=== PATIENT | male | born 1965 | race Two or more races ===

== ENCOUNTER 2024-12-14 05:50 | Day surgery (SDC) | payer BC, SELFPAY ==
--- NOTE | 2024-12-13 06:23 | EKG_ITS ---
[facility] Test Date: 2024-12-13 Pat Name: KIMBERLY JI Department: Room: - Gender: Male Security Operations Engineer: LULI : 1965 Requested By: Nikita Newsome Order Number: [id number] Reading MD: Nikita Newsome Measurements Intervals [place] Rate: 57 P: 13 UT: 127 QRS: -23 QRSD: 92 T: 54 QT: 379 QTc: 371 Interpretive Statements SINUS BRADYCARDIA BORDERLINE LEFT AXIS DEVIATION [QRS AXIS < -20] No previous ECG available for comparison /[id number]/[email or web address]/[id number].pdf
[2024-12-13 10:37] VITALS: BMI 23.9
[2024-12-13 11:06] LABS: Collection Type, Urine Clean Catch; Squamous Epithelial Cell,Urine 0 /hpf (0-5)
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
[2024-12-13 12:08] LABS: Basophils # (Auto) 0.1 Thou/mm3 (0.0-0.2); Basophils % (Auto) 1 % (0-2.5); Eosinophils # (Auto) 0.1 Thou/mm3 (0.0-0.5); Eosinophils % (Auto) 1 % (0-10); Hematocrit 42.9 % (41.0-53.0); Hemoglobin 14.9 g/dL (13.5-16.0); Immature Granulocytes Auto 0.04 Thou/mm3 (0.00-0.00); Lymphocytes # (Auto) 2.0 Thou/mm3 (1.0-4.8); Lymphocytes % (Auto) 30 % (10-50); Mean Corpuscular HGB Conc 34.7 g/dl (31.0-37.0); Mean Corpuscular Hemoglobin 33.9 pg (25.0-35.0); Mean Corpuscular Volume 98 fL (80-100); Monocytes # (Auto) 0.5 Thou/mm3 (0.0-0.8); Monocytes % (Auto) 7 % (0-12); Neutrophils # (Auto) 4.0 Thou/mm3 (1.8-7.7); Neutrophils % (Auto) 60 % (37-80); Nucleated Red Blood Cell # 0.00 Thou/mm3 (0.00-0.00); Nucleated Red Blood Cell % 0 /100 WBC (0); Platelet Count 443 Thou/mm3 (140-440); RDW Standard Deviation 42.1 fL (35.1-43.9); Red Blood Count 4.40 Miln/mm3 (4.50-5.90); White Blood Count 6.6 Thou/mm3 (3.8-10.6)
[2024-12-13 12:20] LABS: Alanine Aminotransferase 38 U/L (10-49); Albumin, Serum 4.6 gm/dL (3.4-4.8); Albumin/Globulin Ratio 1.6 (1.2-2.2); Alkaline Phosphatase 68 U/L (46-116); Anion Gap 10 (7-16); Aspartate Amino Transferase 29 U/L (0-34); BUN/Creatinine Ratio 14 Ratio (12-20); Bilirubin,Total 0.6 mg/dL (0.3-1.2); Blood Urea Nitrogen 11 mg/dL (9-23); Calcium 10.0 mg/dL (8.3-10.6); Calcium (Corrected) 10.0 mg/dL (8.5-10.1); Carbon Dioxide 24.2 mMol/L (20.0-31.0); Chloride 100 mMol/L (98-107); Creatinine (Component) 0.8 mg/dL (0.6-1.3); Estimated Creatinine Clearance 93.8 mL/min (>60); Globulin 2.8 gm/dL (2.3-3.5); Glucose 143 mg/dL (74-106); Osmolality,Calculated 269 (275-295); Potassium 4.8 mMol/L (3.4-5.1); Sodium 134 mMol/L (136-145); Total Protein 7.4 gm/dL (5.7-8.2); eGFR > 60 See Note
[2024-12-13 12:28] LABS: Bilirubin,Urine Negative (Negative); Blood,Urine Negative (Negative); Clarity,Urine Clear (Clear/Hazy); Color,Urine Lt-Yellow (Lt Yel-Yel); Glucose, Urine Negative (Negative); Ketones,Urine 1+ (Negative); Leukocyte Esterase,Urine Negative (Negative); Nitrite,Urine Negative (Negative); PH,Urine 5.5 (5.0-7.0); Protein,Urine Trace (Neg - Trace); RBC,Urine 3 /hpf (0-3); Specific Gravity,Urine 1.020 (1.001-1.035); Urobilinogen,Urine Negative mg/dL (0.0-1.0); WBC,Urine < 1 /hpf (0-5)
[2024-12-14] VITALS (7 sets, daily range): BP systolic 134–166; BP diastolic 65–80; PULSE 73–81; RESP 12–16; TEMP 36.2–36.7; O2SAT 97–100; BMI 23.6
[2024-12-14] MEDS: RINGERS LACTATED 1000 ML 1,000 ML 20 ML IV (06:44)
--- NOTE | 2024-12-14 07:28 | CHAP ---
Prayed with patient concerning upcoming procedure.
--- NOTE | 2024-12-14 09:37 | SUR.PHASEI ---
0937: Pt. wakes to name then drifts back to sleep, vitals stable, breathing unlabored, no signs of distress, dressing to penis CDI, no active bleed noted, report received from MD Matthews and Jax SOTELO.
--- NOTE | 2024-12-14 10:04 | ESOP_ITS ---
RE: KIMBERLY GARCÍA : 1965 DATE OF OPERATION: 12/14/2024 PREOPERATIVE DIAGNOSES: Paraphimosis with history of phimosis, diabetes mellitus. POSTOPERATIVE DIAGNOSES: Paraphimosis with history of phimosis, diabetes mellitus. PROCEDURE PERFORMED: Circumcision. ANESTHESIA: General by Dr. Matthews. INDICATION: The patient is a 59-year-old diabetic male who was referred to al with history of paraphimosis for several weeks. The patient is diabetic. He has a small hole on his foreskin on the ventral aspect of foreskin, which is about 0.5 cm in size with a small amount of pus. He is now scheduled to have circumcision. Attempt to reduce his paraphimosis in the office was not successful because of the pain and a longstanding paraphimosis. DESCRIPTION OF PROCEDURE: After the patient was brought to the operating table under adequate general anesthesia given by Dr. Matthews in supine position. Parts were prepped and draped in the usual fashion. Circumcision was then carried out by removing the foreskin in a circumferential manner at the level of gómez glandis. Complete hemostasis was obtained. Skin was reapproximated back by placing interrupted sutures of 3-0 chromic catgut. Local anesthetic was injected at the base of the penis. Sterile dressing was then applied. The patient was then transferred to the recovery room in a satisfactory condition having tolerated the entire procedure well. Sponge count and needle count at the end of the procedure was found to be correct. Estimated blood loss was approximately 5 mL. DT: 09:52:42 TT: 10:03:00 Ref: [id number] - TID: [id number]
--- NOTE | 2024-12-14 10:30 | SUR.PHASEII ---
1030: Pt. AAOx4, vitals stable, breathing unlabored, no complaint of pain or nausea, dressing to penis CDI, no active bleed noted, pt. tolerated bites of ice chips well, pt. ambulated to wheelchair with steady gait and no assist, no complications. Gave discharge instructions to the pt. and his ride, both verbalized understanding and had no further questions. Pt. left with all personal belongings.
== END 2024-12-14 10:30 | disposition home or self-care (01) ==
PROVIDERS: Anesthesiology; PCP Family Medicine; Referring Provider Surgery; Visit Provider Surgery
PROC: (CPT 54161; principal; 2024-12-14 08:30)
DX: N47.2 Paraphimosis (principal); Z01.810 Encounter for preprocedural cardiovascular examination; E11.9 Type 2 diabetes mellitus without complications; I10 Essential (primary) hypertension
CPT/HCPCS: 54161; 36415; 80053; 81001; 85025; 93005; A4217; A4649; J0690; J1100; J2371; J2405; J2704; J3010; J3490; J7120; A9270; J0665